=== PATIENT | female | born 1940 | race Caucasian/White ===

== ENCOUNTER 2024-02-06 12:12 | Inpatient (IN) | payer OTHER ==
[~2024-02-06] VITALS: Ht 160 cm; Wt 71.7 kg
[2024-02-06 12:12] VITALS: BP 128/79; PULSE 143; RESP 32; TEMP 97; O2SAT 95
[2024-02-06] MEDS: DILTIAZEM 25 MG/5 ML VIAL IVP ONE (12:31)
[2024-02-06 13:01] LABS: ANION GAP 15.4 (8-16); CALCIUM 9.2 mg/dL (8.5-10.1); CHLORIDE 103 mmol/L (98-107); CREATININE 0.9 mg/dL (0.6-1.3); GLUCOSE 95 mg/dL (74-106); POTASSIUM 4.4 mmol/L (3.5-5.1); SODIUM SERUM 139 mmol/L (136-145); UREA NITROGEN, BLOOD 23 mg/dL (7-18)
[2024-02-06 13:03] LABS: INR 1.06 (0.8-1.2); PARTIAL THROMBOPLASTIN TIME 21.4 secs (22-35.6); PROTHROMBIN TIME 11.1 secs (10.8-13.4)
[2024-02-06 13:07] LABS: ALANINE AMINOTRANSFERASE 60 U/L (12-78); ALBUMIN 3.3 g/dL (3.4-5.0); ALKALINE PHOSPHATASE 129 U/L (50-136); ASPARTATE AMINOTRANSFERASE 75 U/L (15-37); BILIRUBIN,DIRECT 0.1 mg/dL (0.0-0.3); TOTAL BILIRUBIN 1.3 mg/dL (0.0-1.0); TOTAL PROTEIN, SERUM 7.2 g/dL (6.4-8.2)
[2024-02-06 13:30] LABS: BASOPHILS # (AUTO) 0.1 K/uL (0.00-0.22); BASOPHILS % (AUTO) 0.4 % (0.0-2.0); EOSINOPHILS % (AUTO) 0.1 % (0.0-4.0); HEMOGLOBIN 14.3 g/dL (12.0-16.0); LYMPHOCYTES # (AUTO) 0.9 K/uL (2.5-16.5); MEAN CORPUSCULAR HEMOGLOBIN 29 pg (27-31); MEAN CORPUSCULAR HGB CONC 32 g/dL (33-37); MEAN CORPUSCULAR VOLUME 88.7 fL (80-94); MONOCYTES # (AUTO) 0.8 K/uL (0.8-1.0); MONOCYTES % (AUTO) 4.7 % (1.7-9.3); NEUTROPHILS # (AUTO) 15.5 K/uL (1.8-7.7); NEUTROPHILS % (AUTO) 89.8 % (42.2-75.2); PLATELET COUNT (AUTO) 291 K/uL (140-450); RED BLOOD CELL COUNT(AUTO) 4.96 MIL/uL (4.20-5.40); RED CELL DISTRIBUTION WIDTH 14.1 % (11.6-13.7); WHITE BLOOD COUNT (AUTO) 17.3 K/uL (4.8-10.8)
[2024-02-06 13:56] LABS: LACTIC ACID 2.8 mmol/L (0.4-2.0)
[2024-02-06] MEDS: ALBUMIN HUMAN 25% 100 ML IV ONE (14:20)
[2024-02-06 14:53] LABS: BILIRUBIN,URINE NEGATIVE (NEGATIVE); BLOOD, URINE 3+ (NEGATIVE); COLOR,URINE YELLOW (YELLOW); LEUKOCYTE ESTERASE ,URINE 1+ (NEGATIVE); NITRITE, URINE POSITIVE (NEGATIVE); PROTEIN,URINE 2+ (NEGATIVE); UGLUCOSE NEGATIVE (NEGATIVE); UROBILINOGEN,URINE 0.2 EU/dL (0.2 - 1)
[2024-02-06 14:58] LABS: APPEARANCE,URINE SLIGHTLY HAZY (CLEAR)
[2024-02-06 15:00] LABS: BACTERIA,URINE 1+ /HPF (None Seen); MUCUS,URINE None Seen /LPF (None Seen); RBC,URINE 11-20 (MOD) /HPF (0-5); SQUAMOUS EPITHELIAL CELL,UR 4-10 (MOD) /LPF (0-3 (FEW))
[2024-02-06] MEDS ORDERED: ONDANSETRON 4 MG/2 ML VIAL IVP PRN (15:00)
[2024-02-06] MEDS ORDERED: ALBUTEROL 0.083% 2.5 MG/3 ML NEBU INH PRN (15:00)
[2024-02-06] MEDS: NACL 0.9% 1,000 ML IV SCH (16:09)
[2024-02-06] MEDS: LEVOFLOXACIN 500 MG/D5W PREMIX 100 ML IV SCH (16:10)
[2024-02-06] MEDS ORDERED: ASPI-1822 PO (17:13)
[2024-02-06] MEDS ORDERED: FAMO20TA13 PO (17:13)
[2024-02-06] MEDS ORDERED: ATOR20TA40 PO (17:13)
[2024-02-06] MEDS ORDERED: MIRT7.5T14 PO (17:13)
[2024-02-06] MEDS ORDERED: TRAM50TA3 PO (17:13)
[2024-02-06] MEDS ORDERED: GABA300C (17:13)
[2024-02-06 19:30] VITALS: BP 130/77; PULSE 90; RESP 18; TEMP 98.1; O2SAT 95
[2024-02-06 19:55] VITALS: PULSE 88
[2024-02-06] MEDS: METOPROLOL 25 MG TAB PO SCH (23:20)
[2024-02-06 23:55] VITALS: PULSE 96
[2024-02-07] VITALS (10 sets, daily range): BP systolic 90–152; BP diastolic 57–85; PULSE 66–97; RESP 16–20; TEMP 96.5–98.3; O2SAT 95–100
[2024-02-07] MEDS ORDERED: traMADol 50 MG TAB PO PRN (05:10)
[2024-02-07 06:50] LABS: BASOPHILS % (AUTO) 0.2 % (0.0-2.0); HEMATOCRIT 38.8 % (36-48); HEMOGLOBIN 12.8 g/dL (12.0-16.0); LYMPHOCYTES # (AUTO) 1.7 K/uL (2.5-16.5); LYMPHOCYTES % (AUTO) 9.6 % (20.5-51.1); MEAN CORPUSCULAR HEMOGLOBIN 29 pg (27-31); MEAN CORPUSCULAR HGB CONC 33 g/dL (33-37); MEAN CORPUSCULAR VOLUME 88.4 fL (80-94); MONOCYTES # (AUTO) 1.1 K/uL (0.8-1.0); MONOCYTES % (AUTO) 6.5 % (1.7-9.3); NEUTROPHILS # (AUTO) 14.7 K/uL (1.8-7.7); NEUTROPHILS % (AUTO) 83.7 % (42.2-75.2); PLATELET COUNT (AUTO) 242 K/uL (140-450); RED BLOOD CELL COUNT(AUTO) 4.39 MIL/uL (4.20-5.40); RED CELL DISTRIBUTION WIDTH 14.1 % (11.6-13.7); WHITE BLOOD COUNT (AUTO) 17.6 K/uL (4.8-10.8)
[2024-02-07 07:19] LABS: ANION GAP 11.7 (8-16); CALCIUM 8.8 mg/dL (8.5-10.1); CHLORIDE 107 mmol/L (98-107); CREATININE 0.7 mg/dL (0.6-1.3); GLUCOSE 97 mg/dL (74-106); POTASSIUM 3.7 mmol/L (3.5-5.1); SODIUM SERUM 140 mmol/L (136-145); UREA NITROGEN, BLOOD 20 mg/dL (7-18)
[2024-02-07] MEDS: LEVOFLOXACIN 250 MG/D5 PREMIX 50 ML IV SCH (09:55)
[2024-02-07] MEDS: ASPIRIN 81 MG TAB.CHEW PO SCH (09:55)
[2024-02-07] MEDS: FAMOTIDINE 20 MG TAB PO SCH (09:56)
[2024-02-07] MEDS: GABAPENTIN 300 MG CAP PO SCH (09:56)
[2024-02-07] MEDS ORDERED: ATORVASTATIN 20 MG TAB PO SCH (21:00)
[2024-02-07] MEDS: MIRTAZAPINE 15 MG TAB PO SCH (21:33)
[2024-02-07] MEDS: APIXABAN 2.5 MG TAB PO SCH (21:35)
[2024-02-08] VITALS (11 sets, daily range): BP systolic 95–128; BP diastolic 55–83; PULSE 77–100; RESP 18–20; TEMP 97.7–98.9; O2SAT 96–99
[2024-02-08 06:50] LABS: BASOPHILS # (AUTO) 0.1 K/uL (0.00-0.22); BASOPHILS % (AUTO) 0.3 % (0.0-2.0); EOSINOPHILS % (AUTO) 0.1 % (0.0-4.0); HEMATOCRIT 38.6 % (36-48); HEMOGLOBIN 12.4 g/dL (12.0-16.0); LYMPHOCYTES # (AUTO) 1.9 K/uL (2.5-16.5); LYMPHOCYTES % (AUTO) 11.7 % (20.5-51.1); MEAN CORPUSCULAR HEMOGLOBIN 29 pg (27-31); MEAN CORPUSCULAR HGB CONC 32 g/dL (33-37); MEAN CORPUSCULAR VOLUME 89.7 fL (80-94); MONOCYTES # (AUTO) 1.1 K/uL (0.8-1.0); MONOCYTES % (AUTO) 6.9 % (1.7-9.3); NEUTROPHILS # (AUTO) 13.3 K/uL (1.8-7.7); PLATELET COUNT (AUTO) 217 K/uL (140-450); RED BLOOD CELL COUNT(AUTO) 4.31 MIL/uL (4.20-5.40); RED CELL DISTRIBUTION WIDTH 14.6 % (11.6-13.7); WHITE BLOOD COUNT (AUTO) 16.4 K/uL (4.8-10.8)
[2024-02-08 07:40] LABS: CALCIUM 8.7 mg/dL (8.5-10.1); CARBON DIOXIDE 24.9 mmol/L (21-32); CHLORIDE 108 mmol/L (98-107); CREATININE 0.7 mg/dL (0.6-1.3); GLUCOSE 90 mg/dL (74-106); POTASSIUM 3.9 mmol/L (3.5-5.1); SODIUM SERUM 140 mmol/L (136-145); UREA NITROGEN, BLOOD 19 mg/dL (7-18)
[2024-02-08] MEDS: ATORVASTATIN 20 MG TAB PO SCH (09:03)
[2024-02-08] MEDS ORDERED: LEVOFLOXACIN 750 MG/D5W PREMIX 150 ML IV SCH (14:55)
[2024-02-08] MEDS ORDERED: VANCOMYCIN PER PHARMACY MC PRN (14:55)
[2024-02-08] MEDS ORDERED: LEVOFLOXACIN 250 MG/D5 PREMIX 50 ML IV SCH (15:05)
[2024-02-08] MEDS: VANCOMYCIN 1,000 MG in DEXTROSE 5% 250 ML IV SCH (16:00)
[2024-02-08] MEDS: LEVOFLOXACIN 250 MG/D5 PREMIX 50 ML IV SCH (16:09)
[2024-02-08] MEDS: cefTRIAXone 1,000 MG VIAL ONE (20:04)
[2024-02-08] MEDS ORDERED: VANCOMYCIN 1,000 MG in DEXTROSE 5% 250 ML IV ONE (21:00)
[2024-02-09] VITALS (10 sets, daily range): BP systolic 103–116; BP diastolic 53–86; PULSE 67–100; RESP 18; TEMP 96.1–97.9; O2SAT 96–100
[2024-02-09 06:53] LABS: BASOPHILS # (AUTO) 0.1 K/uL (0.00-0.22); BASOPHILS % (AUTO) 0.6 % (0.0-2.0); EOSINOPHILS % (AUTO) 0.2 % (0.0-4.0); HEMATOCRIT 37.2 % (36-48); HEMOGLOBIN 12.1 g/dL (12.0-16.0); LYMPHOCYTES # (AUTO) 1.6 K/uL (2.5-16.5); LYMPHOCYTES % (AUTO) 12.4 % (20.5-51.1); MEAN CORPUSCULAR HEMOGLOBIN 29 pg (27-31); MEAN CORPUSCULAR HGB CONC 33 g/dL (33-37); MEAN CORPUSCULAR VOLUME 88.9 fL (80-94); MONOCYTES % (AUTO) 7.7 % (1.7-9.3); NEUTROPHILS # (AUTO) 10.4 K/uL (1.8-7.7); NEUTROPHILS % (AUTO) 79.1 % (42.2-75.2); PLATELET COUNT (AUTO) 234 K/uL (140-450); RED BLOOD CELL COUNT(AUTO) 4.18 MIL/uL (4.20-5.40); RED CELL DISTRIBUTION WIDTH 14.3 % (11.6-13.7); WHITE BLOOD COUNT (AUTO) 13.1 K/uL (4.8-10.8)
[2024-02-09 07:16] LABS: ANION GAP 11.7 (8-16); CALCIUM 8.4 mg/dL (8.5-10.1); CARBON DIOXIDE 24.7 mmol/L (21-32); CHLORIDE 108 mmol/L (98-107); CREATININE 0.7 mg/dL (0.6-1.3); GLUCOSE 95 mg/dL (74-106); POTASSIUM 3.4 mmol/L (3.5-5.1); SODIUM SERUM 141 mmol/L (136-145); UREA NITROGEN, BLOOD 15 mg/dL (7-18)
[2024-02-09] MEDS: POTASSIUM CHLORIDE 40 MEQ, LIDOCAINE 1% 25 MG in NACL 0.9% 250 ML IV SCH (14:40)
[2024-02-10] VITALS (11 sets, daily range): BP systolic 122–158; BP diastolic 54–87; PULSE 60–87; RESP 14–20; TEMP 97–98.4; O2SAT 95–100
[2024-02-10 07:11] LABS: CALCIUM 8.3 mg/dL (8.5-10.1); CHLORIDE 110 mmol/L (98-107); CREATININE 0.7 mg/dL (0.6-1.3); GLUCOSE 88 mg/dL (74-106); SODIUM SERUM 143 mmol/L (136-145); UREA NITROGEN, BLOOD 16 mg/dL (7-18)
[2024-02-10] MEDS: CRUSHER, PILL MC ONE (08:00)
[2024-02-11] VITALS (8 sets, daily range): BP systolic 142–167; BP diastolic 59–84; PULSE 68–99; RESP 17–20; TEMP 97.4–98.5; O2SAT 95–99
[2024-02-11 07:15] LABS: BASOPHILS % (AUTO) 0.4 % (0.0-2.0); EOSINOPHILS # (AUTO) 0.1 K/uL (0-0.4); EOSINOPHILS % (AUTO) 1.2 % (0.0-4.0); HEMATOCRIT 37.7 % (36-48); HEMOGLOBIN 12.2 g/dL (12.0-16.0); LYMPHOCYTES # (AUTO) 1.8 K/uL (2.5-16.5); LYMPHOCYTES % (AUTO) 16.4 % (20.5-51.1); MEAN CORPUSCULAR HEMOGLOBIN 29 pg (27-31); MEAN CORPUSCULAR HGB CONC 32 g/dL (33-37); MEAN CORPUSCULAR VOLUME 89.5 fL (80-94); MONOCYTES # (AUTO) 0.9 K/uL (0.8-1.0); MONOCYTES % (AUTO) 8.6 % (1.7-9.3); NEUTROPHILS % (AUTO) 73.4 % (42.2-75.2); PLATELET COUNT (AUTO) 266 K/uL (140-450); RED BLOOD CELL COUNT(AUTO) 4.21 MIL/uL (4.20-5.40); RED CELL DISTRIBUTION WIDTH 14.2 % (11.6-13.7); WHITE BLOOD COUNT (AUTO) 10.9 K/uL (4.8-10.8)
[2024-02-11 07:21] LABS: CALCIUM 8.6 mg/dL (8.5-10.1); CARBON DIOXIDE 29.8 mmol/L (21-32); CHLORIDE 107 mmol/L (98-107); CREATININE 0.7 mg/dL (0.6-1.3); GLUCOSE 90 mg/dL (74-106); POTASSIUM 3.8 mmol/L (3.5-5.1); SODIUM SERUM 144 mmol/L (136-145); UREA NITROGEN, BLOOD 14 mg/dL (7-18)
[2024-02-11] MEDS ORDERED: MAG SULF 2000 MG/WATER PREMIX 50 ML IV PRN (10:45)
[2024-02-11] MEDS ORDERED: POTASSIUM CHLORIDE 10 MEQ TABER PO PRN (10:45)
[2024-02-11] MEDS ORDERED: APIX2.5 PO (13:33)
[2024-02-11] MEDS ORDERED: METO25TA PO (13:33)
[2024-02-11] MEDS ORDERED: SULF-954 PO (13:33)
[2024-02-11] MEDS ORDERED: SULFAMETH/TRIMETH DS 800/160MG 1 TAB PO SCH (21:00)
== END 2024-02-11 19:05 | DRG 871 ==
LOC: MED 12:12 → MTU 15:03
PROVIDERS: ADMIT Student in an Organized Health Care Education/Training Program; ATTEND Student in an Organized Health Care Education/Training Program
DX: A41.51 Sepsis due to Escherichia coli [E. coli] (principal); E43 Unspecified severe protein-calorie malnutrition; G93.41 Metabolic encephalopathy; N39.0 Urinary tract infection, site not specified; I69.351 Hemiplegia and hemiparesis following cerebral infarction affecting right dominant side; Z16.23 Resistance to quinolones and fluoroquinolones; B96.20 Unspecified Escherichia coli [E. coli] as the cause of diseases classified elsewhere; E78.5 Hyperlipidemia, unspecified; I10 Essential (primary) hypertension; I48.91 Unspecified atrial fibrillation; I73.9 Peripheral vascular disease, unspecified; K21.9 Gastro-esophageal reflux disease without esophagitis; F32.A Depression, unspecified; Z88.0 Allergy status to penicillin; Z79.51 Long term (current) use of inhaled steroids; Z79.899 Other long term (current) drug therapy; Z68.28 Body mass index [BMI] 28.0-28.9, adult
CPT/HCPCS: 36415; 70450; 71045; 76770; 76830; 80048; 80076; 81001; 83605; 83735; 83880; 84484; 85025; 85610; 85730; 87040; 87081; 87086; 87186; 93005; 96365; 96375; 97110; 97112; 97530; 99291; J0696; J1956; J2001; J3370; J3480; J3490; J7030; J7060; P9046; Q0092